=== PATIENT | female | born 1975 ===

== ENCOUNTER 2017-09-21 10:30 | Inpatient (IN) | payer OTHER ==
[~2017-09-21] VITALS: Ht 160 cm; Wt 83.9 kg
== END 2017-10-01 13:10 | DRG 743 ==
LOC: ADM 10:30 → EDSTATUS 09-23 07:30 → O/R 09-28 06:03 → OB/GYN 09-28 06:03
PROVIDERS: Obstetrics & Gynecology
PROC: 0UT70ZZ Resection of Bilateral Fallopian Tubes, Open Approach (ICD-10-PCS; 2017-09-28)
PROC: 0UQ20ZZ Repair Bilateral Ovaries, Open Approach (ICD-10-PCS; 2017-09-28)
PROC: 0UT90ZZ Resection of Uterus, Open Approach (ICD-10-PCS; principal; 2017-09-28 07:00)
DX: D25.1 Intramural leiomyoma of uterus (principal); N84.0 Polyp of corpus uteri; N80.0 Endometriosis of uterus; N71.1 Chronic inflammatory disease of uterus

== ENCOUNTER 2017-10-21 20:14 | Emergency (ER) | payer OTHER ==
[~2017-10-21] VITALS: Ht 160 cm; Wt 83.9 kg
[2017-10-22] MEDS ORDERED: KETO10TA2 PO (07:05)
== END 2017-10-22 07:20 | disposition home or self-care (01) ==
LOC: ER 20:14
DX: N83.292 Other ovarian cyst, left side (principal); R10.32 Left lower quadrant pain